=== PATIENT | male | born 1995 | race Caucasian/White ===

== ENCOUNTER 2021-08-25 06:04 | Emergency (ER) | payer MEDICAID ==
[~2021-08-25] VITALS: Ht 157.5 cm; Wt 58.1 kg
[2021-08-25 06:21] VITALS: BP 132/76
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
[2021-08-25] MEDS ORDERED: NALO4SPR BNOSTRILS (07:23)
--- NOTE | 2021-08-25 08:54 | NUR ---
PT REFUSED TO WAIT FOR THE DIRECTOR REACTOR PROJECTS AND STATING THEY WANT TO LEAVE.
--- NOTE | 2021-08-25 08:56 | NUR ---
Patient discharged to home in stable condition. Written and verbal after care instructions given. Patient verbalizes understanding of instruction.
== END 2021-08-25 08:57 | disposition home or self-care (01) ==
LOC: ER 06:08
DX: S00.81XA Abrasion of other part of head, initial encounter (principal); F11.10 Opioid abuse, uncomplicated; F41.9 Anxiety disorder, unspecified; V49.69XA Unspecified car occupant injured in collision with other motor vehicles in traffic accident, initial encounter; Y93.89 Activity, other specified; Y92.413 State road as the place of occurrence of the external cause; Y99.8 Other external cause status